=== PATIENT | female | born 1970 | race Caucasian/White ===

== ENCOUNTER 2023-11-05 23:40 | Inpatient (IN) | payer MEDICARE, OTHER, SELFPAY ==
[2023-11-05 19:44] VITALS: BMI 28.8
[2023-11-05 19:50] VITALS: BP 113/78
[2023-11-05 20:16] LABS: % Basophils 0.7 % (0-2); % Immature Granulocytes 0.2 % (0-0.5); % Lymphocytes 29.7 % (20.5-51.1); % Monocytes 4.8 % (1.7-9.3); % Neutrophils 62.6 % (42.2-75.2); Absolute Basophils 0.1 10^3/uL (0-0.2); Absolute Eosinophils 0.2 10^3/uL (0-0.7); Absolute Lymphocytes 3.6 10^3/uL (1.2-3.4); Absolute Monocytes 0.6 10^3/uL (0.1-0.6); Absolute Neutrophils 7.7 10^3/uL (1.4-6.5); Hematocrit 38.6 % (37.0-47.0); Hemoglobin 12.8 g/dL (12.0-16.0); Mean Corp Hgb Conc. 33.2 g/dL (33.0-37.0); Mean Corpuscular Hgb 29.4 pg (27.0-31.0); Mean Corpuscular Volume 88.7 fL (81.0-99.0); Nucleated Red Blood Cells % 0 %; Platelet Count 361 10^3/uL (130-400); Red Blood Cell Count 4.35 10^6/uL (4.20-5.40); Red Cell Dist. Width 13.4 % (11.5-14.5); White Blood Cell Count 12.2 10^3/uL (4.8-10.8)
--- NOTE | 2023-11-05 20:19 | ED.GENMED ---
History of Present Illness
General
Chief Complaint: Abdominal Symptoms
Time Seen by Provider: 11/05/23 20:19
Travel History
Have you had any contact with someone who has COVID-19?: No
Do you have any symptoms of coronavirus? Fever > 100 degrees, chills, cough, shortness of breath, sore throat, loss of taste or smell, muscle aches, or headache?: No
History of Present Illness
History of Present Illness:
HPI: The patient had diffuse/upper abdominal pain earlier in the evening. She then noted black stool and then vomited blood. She denies alcohol use, denies NSAID use, uses Vicodin for fibromyalgia 3 times a day, did not recently use Pepto. She is
not anticoagulated for history of A-fib. She felt that she was distended earlier. She states that she takes Linzess
EXAM:
GENERAL: Well appearing in no distress
HEENT: Moist oral mucosa
CARDIOVASCULAR: No murmurs, normal heart rate, regular rhythm, No chest wall tenderness
PULMONARY: No respiratory distress, breath sounds are clear and equal
ABDOMEN: Soft with no peritoneal signs, mild diffuse tenderness, borderline heme positive stool, however there is very minimal stool obtained to test
NEUROLOGIC: Excellent strength all extremities, no coordination deficits
PSYCHIATRIC: Appropriate mental status, normal insight and judgement
EXTREMITIES: Nontender, no edema, moves all extremities equally
SKIN: No rash, no lesions
TIME OF INITIAL ENCOUNTER:8:20 PM
NUMBER AND COMPLEXITY OF PROBLEMS ADDRESSED AT THE ENCOUNTER
� Chronic conditions affecting care: Atrial fibrillation, migraines, GERD, von Willebrand's
� Acute Exacerbation and/or Progression of Chronic Illness: This is an acute problem
� Differential Diagnosis includes: Gastritis, peptic ulcer disease, esophagitis
AMOUNT AND/OR COMPLEXITY OF DATA TO BE REVIEWED AND ANALYZED
� I performed an independent evaluation of and my interpretation is:
EKG:
CT: I personally viewed CT imaging and see no clear acute abnormality; I reviewed radiologist interpretation that suggested very mild colitis however this does not fit with picture as she presented with hematemesis and reported
melena.
X-rays:
Laboratory Studies: White count 12.2, hemoglobin 12.8, chemistries including LFTs and lipase are normal
Other:
� Review of other/old records: I reviewed records�prior records show hemoglobin primarily between 13.3 and 14.9 recently
� Clinical information was obtained by an independent historian: I spoke to at bedside
� Prescriptions/Medications Considered but not given:
� Further testing considered but not performed:
RISK OF COMPLICATIONS AND/OR MORBIDITY OR MORTALITY OF PATIENT MANAGEMENT
� Social determinants of health affecting care: Lives at home
� Discussion with other providers: Hospitalist for admission at 10:20 PM
� Escalation of care including admission/observation vs risk of discharge considered: Gave Pepcid and Protonix. Will obtain CT imaging as she reports rather significant pain earlier. CT imaging relatively unremarkable. On
reassessment at 10:15 PM, the patient overall feels about the same as earlier. However workup is relatively unremarkable with exception of slightly lower than baseline hemoglobin. CT suggested mild colitis however this does not presentation.
Past History
Past History
ED Past Medical History: Other (Fibromyalgia)
ED Past Surgical History: Appendectomy and Gynecological
Social History
Tobacco: Non-smoker
Alcohol: None
Living: with family
Phy Exam
Physical Exam
Physical Exam:
See HPI
Course
Orders/Labs/Results
Orders:
Orders
11/05/23 19:58
Type+Screen Urgent
Complete Blood Count/With Diff Urgent
Comprehensive Metabolic Panel Urgent
Lipase Urgent
Comment: ADD ON
PTT Urgent
Prothrombin Time Urgent
11/05/23 20:28
Add On- LAB Urgent
Tests Added?: lipase
CT Abd/pelvis W Iv Cont Urgent
Comment:
Reason For Exam: diffuse abd pain leukocytosis
11/05/23 20:29
Famotidine [Pepcid] 20 mg IV NOW STA
Pantoprazole [Protonix IV] 40 mg IV NOW STA
Abnormal Lab Results
11/05/23
19:58
WBC 12.2 H 10^3/uL
(4.8-10.8)
Absolute Neuts (auto) 7.7 H 10^3/uL
(1.4-6.5)
Absolute Lymphs (auto) 3.6 H 10^3/uL
(1.2-3.4)
Carbon Dioxide 33 H mmol/L
(22-30)
Glucose 112 H mg/dl
(70-99)
11/05/23 19:58
11/05/23 19:58
Vital Signs
Initial and Last Documented VS:
Initial Vital Signs
Temp Pulse Resp BP Pulse Ox
98.2 F 65 14 113/78 100
11/05/23 19:50 11/05/23 19:50 11/05/23 19:50 11/05/23 19:50 11/05/23 19:50
Last Documented Vital Signs
Temp Pulse Resp BP Pulse Ox
98.2 F 59 14 101/69 100
11/05/23 19:50 11/05/23 22:00 11/05/23 22:00 11/05/23 22:00 11/05/23 20:35
*Critical Care Note
Total Time (30-74mins, 75-104mins- exclusive of procedures): Not Applicable
ED Attending Note
-
Portions of this chart may have been created with voice recognition software.� Occasional wrong word or��sound alike� substitutions may have occurred due to the inherent limitations of voice recognition software.
Discharge Plan
Departure
Prescriptions:
No Action
cyanocobalamin (vitamin B-12) 1,000 MCG tablet
1,000 mcg PO DAILY
hydrocodone-acetaminophen 10-325 mg Tablet
1 tab PO TIDPRN PRN (Reason: severe pain)
magnesium gluconate 30 mg (550 mg) Tablet
30 mg PO Q48H
eszopiclone [Lunesta] 3 mg Tablet
3 mg PO HS
Visbiome 112.5 billion cell Capsule
1 cap PO DAILY
Linzess 290 mcg Capsule
290 mcg PO DAILY
Medical Marijuana
200 mcg PO DAILY
Referrals:
UNKNOWN - PT DOES,NOT KNOW [Family Provider] -
Interventions
Interventions:
*Risk Screen - Suicide Last Done: 11/05/23 19:50
*General Assessment Last Done: 11/05/23 19:50
*Neglect/Abuse Screening Last Done: 11/05/23 19:50
ED- Fall Risk Assessment Last Done: 11/05/23 21:29
QN-Mulubn-Mynktypwxs Assessment Last Done: 11/05/23 21:29
Discharge Date and Time
Print Language: SPANISH
[2023-11-05 20:26] LABS: ALT (SGPT) 21 U/L (0-35); AST (SGOT) 25 U/L (14-36); Albumin 4.3 g/dl (3.5-5.0); Alkaline Phosphatase 70 U/L (38-126); Blood Urea Nitrogen 17 mg/dl (7-17); Calcium 9.6 mg/dl (8.4-10.2); Carbon Dioxide 33 mmol/L (22-30); Chloride 101 mmol/L (98-107); Glucose 112 mg/dl (70-99); INR 1.14; PT 14.4 Sec (11.4-14.6); Potassium 4.1 mmol/L (3.5-5.1); Sodium 135 mmol/L (135-145); Total Bilirubin 0.2 mg/dl (0.2-1.3); eGFR > 60.00
[2023-11-05 20:27] LABS: APTT 31.1 Sec (23.4-35.0)
[2023-11-05 20:35] VITALS: BP 110/76
[2023-11-05 20:51] LABS: Lipase 105 U/L (23-300)
[2023-11-05] MEDS: PROTONIX IV 40 MG IV (20:55)
[2023-11-05] MEDS: PEPCID 20 MG IV (20:55)
[2023-11-05 22:00] VITALS: BP 101/69
--- NOTE | 2023-11-05 22:36 | HPS.HSE ---
Addendum entered and electronically signed by Aries You DO 11/06/23 00:00:
Patient seen and examined independently. Agree with findings and plan as set forth by PAYAM Peck.
Patient is a 53y F with PMH significant for von Willebrand's disease, SVT s/p ablation and fibromyalgia who presents to ED complaining of abdominal pain with hematemesis and melena. Patient reports rather sudden onset of upper abdominal
discomfort this afternoon. She returned home and had a large episode of emesis of bright red blood. She also had loose stool that was black, tarry in appearance. She complained of severe heartburn. Patient presented to the ED for further
evaluation. She denies any prior history of GI bleeding or other similar symptoms.
Patient received Pepcid and Protonix in the ED with some improvement in her symptoms.
She has had no further episodes of emesis or BM.
Ass:
Hematemesis
Melena
Abdominal Pain
GERD
von Willebrand's Disease
History of DVT / PE
SVT s/p Ablation
Fibromyalgia
Plan:
Admit for further evaluation and treatment.
NPO, IVF support.
IV PPI BID.
Follow for any recurrent N/V/D, etc.
GI eval in the AM for probable endoscopic evaluation.
CT findings noted. These are reportedly 'mild' and are not consistent with her presenting symptoms.
Will ask hematology to evaluate as well given vWD history.
? if patient will require pre-treatment for EGD if biopsies are to be obtained, etc.
Original Note:
Family Physician
-
Family Physician: NOT KNOW UNKNOWN - PT DOES
Chief Complaint
-
abdominal pain associated with melena and bloody vomit
History of Present Illness
53 year old with PMH for fibromyalgia, von Willebrand's disease,SVT s/p cardiac ablation, DVT PE presented to us with diffuse abdominal associated black stool and dark vomiting blood. it happened only once. pain much better since the Pepcid and
Protonix in ER. patient still with heart burn. denied any NSAIDS use. yesterday she was having dysuria, urinary urgency and frequency. denied OROZCO, dizzy or syncopal episode. denied fever, chills, chest pain, sob. patient had a clean coloscopy five
years ago.
hgb stable in ER. admitting for further management.
Medical History
Past Medical History
Past Medical History: Reports Other
Additional Past Medical History:
low back pain
SVT
asthma
von Willebrand's disease
migraine OROZCO
fibromyalgia
DVT
PE
Past Surgical History: Reports Other
Additional Past Surgical History:
appendectomy
hysterectomy
tonsillectomy
cardiac ablation
wisdom tooth extraction
Social History
Tobacco: Smoker (1 pack a week)
Alcohol: None
Drug: None
Employment: Employed
Family History
Family History: Not pertinent
Allergies / Home Medications
Allergies reflects when Allergies were last updated in [employer].
Home Medications with original date entered in [employer]
Allergy/Medication List:
Allergies
Allergy/AdvReac Type Severity Reaction Status Date / Time
diphenhydramine Allergy Unknown Verified 05/14/23 08:13
[From Benadryl]
hydromorphone [From Dilaudid] Allergy Vomiting Verified 05/14/23 08:13
Penicillins Allergy Anaphylaxis Verified 05/14/23 08:13
sulfamethoxazole Allergy Hives Verified 05/14/23 08:13
[From Bactrim]
trimethoprim [From Bactrim] Allergy Hives Verified 05/14/23 08:13
Home Medications
cyanocobalamin (vitamin B-12) 1,000 mcg tablet 1,000 mcg PO DAILY Supplement 10/23/21
Lactobac no.2-Bifidobac no.1-S. thermo 112.5 billion cell capsule (Visbiome) 1 cap PO DAILY 11/05/23
Medical Marijuana 200 mcg PO DAILY 11/05/23
eszopiclone 3 mg tablet (Lunesta) 3 mg PO HS 11/05/23
hydrocodone 10 mg-acetaminophen 325 mg tablet 1 tab PO TIDPRN PRN severe pain 11/05/23
linaclotide 290 mcg capsule (Linzess) 290 mcg PO DAILY 11/05/23
magnesium gluconate 30 mg (550 mg) tablet 30 mg PO Q48H 11/05/23
Review of Systems
-
Constitutional: Reports No Symptoms
EENT: Reports No Symptoms
Respiratory: Reports No Symptoms
Cardiac: Reports No Symptoms
Abdomen/GI: Reports Abdominal Pain, Black Stools and Other (bloody vomit)
: Reports No Symptoms
Musculoskeletal: Reports No Symptoms
Skin: Reports No Symptoms
Neurological: Reports No Symptoms
Endocrine: Reports No Symptoms
Hematologic/Lymphatic: Reports No Symptoms
Psych: Reports No Symptoms
Physical Exam
Vital Signs
Vital Signs
Temp Pulse Resp BP Pulse Ox
98.2 F 59 14 101/69 100
11/05/23 19:50 11/05/23 22:00 11/05/23 22:00 11/05/23 22:00 11/05/23 20:35
Physical Exam
General: Well Developed, Well Nourished and No Apparent Distress
HEENT: NormoCephalic, Moist mucous membranes and Atraumatic
Respiratory: Clear
Cardiac: S1/S2 and Regular Rhythm; No Murmur or Rub
GI: Soft, Non Distended, Normal Bowel Sounds and Tender; No Organomegaly
Rectal: Deferred by Provider
Musculoskeletal: No Clubbing, No Cyanosis and No Edema
Skin: No Rash
Neuro: AO x 3 and Nonfocal/grossly intact
Psych: Calm
Laboratory Results
-
11/05/23 19:58
11/05/23
Laboratory Results
PT 14.4 Sec (11.4-14.6) 11/05/23
INR 1.14 11/05/23
APTT 31.1 Sec (23.4-35.0) 11/05/23
Total Bilirubin 0.2 mg/dl (0.2-1.3) 11/05/23
AST 25 U/L (14-36) 11/05/23
ALT 21 U/L (0-35) 11/05/23
Alkaline Phosphatase 70 U/L (38-126) 11/05/23
Lipase 105 U/L (23-300) 11/05/23
Data Reviewed
-
CT Scan: Report Reviewed by me
Lab Data: Labs Reviewed by me
Impression/Plan
-
#melena/hematemesis associated with abdominal pain
-hgb 12.8
-CT abdomen pelvis with Mild wall thickening of the ascending colon may represent very mild colitis. No free air or free fluid. No fluid collection to suggest an abscess.Mild hepatosplenomegaly. Small hypodensity in the left kidney most consistent
with a cyst.Moderate degenerative change at L5-S1.
-clears for now
-NPO after MN
-IV PPI bid
-GI consulted
#mild colitis
-chronic wbc, afebrile
-defer abx at this time
-ctm
#hxt of SVT
-s/p cardiac ablation
#hxt of Von Willebrand's disease
#chornic leukocytosis
-wbc 12.2
-ctm
#insomnia
-Lunesta continued
#chornic pain/hxt of fibromyalgia
-hydrocodone continued
#IBS
-Linzess continued
#DVT prophylaxis
-scd
#CODE status
-full code
[2023-11-06 01:03] VITALS: BP 135/72
[2023-11-06 01:07] VITALS: BMI 28.8
[2023-11-06 01:28] VITALS: BP 150/78; BP 150/89; BP 156/82; PULSE 97; PULSE 98
[2023-11-06] MEDS: AMBIEN 10 MG PO (02:13)
[2023-11-06 04:24] LABS: Hematocrit 36.7 % (37.0-47.0); Hemoglobin 12.6 g/dL (12.0-16.0); Mean Corp Hgb Conc. 34.3 g/dL (33.0-37.0); Mean Corpuscular Hgb 29.6 pg (27.0-31.0); Mean Corpuscular Volume 86.2 fL (81.0-99.0); Mean Platelet Volume 9.9 fL (7.4-10.4); Platelet Count 326 10^3/uL (130-400); Red Blood Cell Count 4.26 10^6/uL (4.20-5.40); Red Cell Dist. Width 13.5 % (11.5-14.5)
[2023-11-06 04:47] LABS: Blood Urea Nitrogen 13 mg/dl (7-17); Calcium 9.7 mg/dl (8.4-10.2); Carbon Dioxide 28 mmol/L (22-30); Chloride 106 mmol/L (98-107); Estimated Creatinine Clearance 87 ml/min; Glucose 97 mg/dl (70-99); Sodium 136 mmol/L (135-145); eGFR > 60.00
[2023-11-06] MEDS: NORCO 5/325 2 TABLET PO (06:29)
[2023-11-06 07:10] VITALS: BP 111/72
--- NOTE | 2023-11-06 07:30 | CON.GI ---
Consultation
-
Date/Time Consultation Requested: 11/05/2356
Date/Time Consultation Performed: 11/06/23 7150
Requesting Provider: Avis HARE
Performing Provider: Dr. Leblanc/PAYAM Schneider
Reason for Consultation: hematemesis
Medical History
Chief Complaint / HPI
Chief Complaint: abd pain, hematemesis, melena
History of Present Illness:
53-year-old female with past medical history of fibromyalgia, von Willebrand's disease, prior PE and DVT, SVT status post ablation, chronic back pain who presents to the emergency room with acute onset of nausea, vomiting, hematemesis, abdominal
pain and reports of dark stool x 1. Asked to evaluate for the same. The patient is not on any anticoagulation or NSAIDs. She Does take chronic narcotics for back pain. She also is on Linzess for chronic constipation. She does also utilize medical
marijuana. She states that she was started on Linzess by her outside industrial engineering technician a few weeks ago. She started seeing some improvement. Yesterday she had a pork going for dinner no one else became ill she started having abdominal cramping
which produced a bowel movement that she states was darker possibly black in color. She has had no recent Pepto use for a couple months and is not on any oral iron. She does take a kelp supplement. She then went out to the store and returned.
She did have nausea with vomiting of her dinner. This was all solid food at the end of the vomiting she did have vomiting of red blood. She did show me a picture of this which I did review. She had no other episodes of vomiting. She had no
further bowel movements. Rectal exam performed in the ER did not elicit any stool within the rectal vault. The patient denies any fevers, chills, hematochezia, dysphagia or odynophagia. No early satiety or unintentional weight loss. She has no
history of GERD. She takes no NSAIDs or aspirin. She does not drink. She has not had any further episodes of bowel movements emesis or abdominal discomfort since arrival. Currently she does have a migraine.
Past Medical History
Past Medical History: Other (Von Willebrands, SVT s/p ablation, fibromyalgia, PE/DVT, migraines, chrinic back pain)
Past Surgical History: Appendectomy, Cardiac (ablation ), Gynecological (hysterectomy), Tonsilectomy and Other (wisdom teeth extraction )
Social History
Tobacco: Smoker
Alcohol: None
Drug: None
Living: With Family
Family History
Family History: Other (Family history gastrointestinal malignancy or IBD)
Allergies / Home Medications
Allergy/AdvReac Type Severity Reaction Status Date / Time
diphenhydramine Allergy Unknown Verified 05/14/23 08:13
[From Benadryl]
hydromorphone [From Dilaudid] Allergy Vomiting Verified 05/14/23 08:13
Penicillins Allergy Anaphylaxis Verified 05/14/23 08:13
sulfamethoxazole Allergy Hives Verified 05/14/23 08:13
[From Bactrim]
trimethoprim [From Bactrim] Allergy Hives Verified 05/14/23 08:13
�Medication �Instructions �Recorded
cyanocobalamin (vitamin B-12) 1,000 mcg PO DAILY Supplement 10/23/21
1,000 mcg tablet
Lactobac no.2-Bifidobac no.1-S. 1 cap PO DAILY 11/05/23
thermo 112.5 billion cell capsule
(Visbiome)
Medical Marijuana 200 mcg PO DAILY 11/05/23
eszopiclone 3 mg tablet (Lunesta) 3 mg PO HS 11/05/23
hydrocodone 10 mg-acetaminophen 1 tab PO TIDPRN PRN severe pain 11/05/23
325 mg tablet
linaclotide 290 mcg capsule 290 mcg PO DAILY 11/05/23
(Linzess)
magnesium gluconate 30 mg (550 mg) 30 mg PO Q48H 11/05/23
tablet
Review of Systems
-
All other systems: A 12 pt ROS was Negative except as stated above in HPI
Vital Signs
Temp Pulse Resp BP Pulse Ox
97.7 F 93 20 135/72 97
11/06/23 01:03 11/06/23 01:03 11/06/23 01:03 11/06/23 01:03 11/06/23 01:31
Physical Exam
Exam
General: Well Developed and Well Nourished
HEENT: Anicteric
GI: Soft, Non Tender, Non Distended and Normal Bowel Sounds
Musculoskeletal: No Edema
Skin: Warm and Dry
Neuro: AO x 3
Psych: Calm
Results
WBC 10.0 10^3/uL (4.8-10.8) 11/06/23 04:17
Hgb 12.6 g/dL (12.0-16.0) 11/06/23 04:17
Hct 36.7 % (37.0-47.0) L 11/06/23 04:17
MCV 86.2 fL (81.0-99.0) 11/06/23 04:17
Plt Count 326 10^3/uL (130-400) 11/06/23 04:17
Absolute Neuts (auto) 7.7 10^3/uL (1.4-6.5) H 11/05/23 19:58
PT 14.4 Sec (11.4-14.6) 11/05/23 19:58
INR 1.14 11/05/23 19:58
APTT 31.1 Sec (23.4-35.0) 11/05/23 19:58
Sodium 136 mmol/L (135-145) 11/06/23 04:17
Potassium 4.0 mmol/L (3.5-5.1) 11/06/23 04:17
Chloride 106 mmol/L (98-107) 11/06/23 04:17
Carbon Dioxide 28 mmol/L (22-30) 11/06/23 04:17
BUN 13 mg/dl (7-17) 11/06/23 04:17
Creatinine 0.7 mg/dL (0.6-1.0) 11/06/23 04:17
Calcium 9.7 mg/dl (8.4-10.2) 11/06/23 04:17
Total Bilirubin 0.2 mg/dl (0.2-1.3) 11/05/23 19:58
AST 25 U/L (14-36) 11/05/23 19:58
ALT 21 U/L (0-35) 11/05/23 19:58
Alkaline Phosphatase 70 U/L (38-126) 11/05/23 19:58
Lipase 105 U/L (23-300) 11/05/23 19:58
Diagnostic Image Results:
CT of the abdomen and pelvis with IV contrast 11/05/2023:
Mild wall thickening of the ascending colon may represent very mild colitis. No free air or free fluid. No fluid collection to suggest an abscess.
Mild hepatosplenomegaly. Small hypodensity in the left kidney most consistent with a cyst.
Moderate degenerative change at L5-S1.
Electronically signed by Nat Ruiz MD 11/05/2023 10:10 PM
Prior GI Procedures:
EGD: Never
Colonoscopy: Approximately 4 years ago per patient states 'normal'.
Assessment / Plan
-
53-year-old female with past medical history of fibromyalgia, von Willebrand's disease, prior PE and DVT, SVT status post ablation, chronic back pain who presents to the emergency room with acute onset of nausea, vomiting, hematemesis, abdominal
pain and reports of dark stool x 1. Asked to evaluate for the same. The patient is not on any anticoagulation or NSAIDs. She Does take chronic narcotics for back pain. She also is on Linzess for chronic constipation. She does also utilize medical
marijuana. She presented with hemoglobin of 12.8 which is down to 12.6. PT 14.4, INR 1.14, BUN 13, creatinine 0.7 total bilirubin 0.2, AST 25, ALT 21, alk phos 70, lipase 105. CT abdomen pelvis with IV contrast shows mild wall thickening of the
ascending colon may represent very mild colitis. No free air or free fluid. No fluid collection to suggest an abscess. Mild hepatosplenomegaly. Small hypodensity in left kidney most consistent with a cyst. Moderate degenerative change at L5-S1.
Impression:
Hematemesis x 1, following episode of solid food vomiting-> most likely episode of Davida-Sotomayor tear, less likely peptic ulcer disease, esophagitis or Dieulafoy.
--stable hemoglobin and no episodes of further vomiting, melena and stable vital signs
Chronic constipation
--On Linzess as an outpatient
CT with possible mild ascending colitis, no signs of this on exam, labs or symptoms
History of von Willebrand's disease with prior PE and DVT in the past.
Migraine
Plan:
-Continue PPI twice daily
-Clear liquid no reds
-Trend hemoglobin
-Hold Linzess until patient tolerating solid diet. Follow-up with patient's primary GI as an outpatient
-Will hold on any endoscopic intervention unless signs of active bleeding unstable vital signs or significant drop in hemoglobin.
Data Reviewed
-
CT Scan: Report Reviewed by me
-
-
Thank you for consultation and allowing me to participate in the patient's care. Please call the [facility] physician during the after hours with any questions or concerns.
[2023-11-06] MEDS: PROTONIX IV 40 MG IV (08:42)
[2023-11-06] MEDS: NSS (PRESERVATIVE FREE) 10 ML IV (08:43)
--- NOTE | 2023-11-06 09:09 | W.PN.HOSP.TC ---
Today's Communication/Plan
-
PPI
Sips of clears
Await GI
Assessment / Plan
Assessment / Plan
49-year-old female admitted because of abdominal discomfort and vomiting blood at the end of her vomiting. Has not had any further vomiting or hematemesis. She had a solids stool yesterday. Which was dark
On examination awake alert
Has a migraine
Cardiovascular system S1-S2 appreciated
Chest clear to auscultation
Abdomen soft and nontender, mild discomfort in the epigastric area no guarding
No pedal edema
Ambulating around the bed
# Hematemesis
From history it looks like Davida-Sotomayor
Hemoglobin is stable
Hold medical marijuana with vomiting
PPI
GI consulted
# Chronic constipation-likely opiate induced
Linzess as outpatient
Hold per discussion with GI
# Mild ascending colitis on CT
No right-sided tenderness
# History of von Willebrand disease
Hematology consulted
# Chronic migraines
# History of arrythmia status post ablation 2016-no further episodes per patient (SVT? ,? Afib)
# Insomnia-on as outpatient
# Fibromyalgia-continue opiates-opiate dependent
# Medical marijuana use
# Asthma
# Tobacco use
# Moderate degenerative change at L5-S1.
# SCDs for DVT prophylaxis
# Full code
Discussed with GI
Discussed with nursing
Anticipated Discharge: Within 24 hours
Subjective/Interval History
-
Date of Service: November 06, 2023
Objective Data
-
Labs:
Laboratory Results
11/06/23
04:17
WBC 10.0
Hgb 12.6
Hct 36.7 L
Plt Count 326
Sodium 136
Potassium 4.0
Chloride 106
Carbon Dioxide 28
BUN 13
Creatinine 0.7
Glucose 97
Calcium 9.7
Vital Signs:
Vital Signs
Temp Pulse Resp BP Pulse Ox
97.8 F 56 18 111/72 97
11/06/23 07:10 11/06/23 07:10 11/06/23 07:10 11/06/23 07:10 11/06/23 07:10
--- NOTE | 2023-11-06 09:46 | CM ---
CM following re:L discharge planning.
Reviewed pt's chart, met with pt.
Pt is a 53 year old female, admitted with primary dx of GI Bleed.
Pt reports she lives with in a 2SH, 2 steps to enter, has supportive daughter. 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 No DME, VN or SNF history.
Pharmacy:[facility].
D/C plan: home with no needs. to transport at discharge.
CM will follow with discharge plan updates as hospitalization progresses
[2023-11-06 10:25] VITALS: BMI 28.8
--- NOTE | 2023-11-06 10:39 | W.PN.UPDATE ---
Addendum entered and electronically signed by Manoj Alex MD 11/07/23 07:31:
Dictation- [id number]
Original Note:
Update Note
Progress Note Update
I have seen the patient again request from nursing as she wants to leave AGAINST MEDICAL ADVICE. Patient is not satisfied with waiting to see if she has more bleeding. She has a headache. We will forward triptans which she stated she has taken in
the past and has not worked. Tylenol is ordered. I have also ordered Compazine.
She is on sips of clears
Discussed again that she may have Davida-Sotomayor tear and waiting n.p.o. to help it heal, GI consultation-attending still has not seen the patient.
She is aware that if she has more bleeding or vomiting she may need EGD
She thinks that PPI did not agree well with her stomach.
I discussed about options to treat migraine she takes Ubrelvy at home which has worked for her I have ordered a. Pharmacy does not carry it. Discussed about bring it from home so she can take it here.
Discussed with patient and nursing. Patient is aware that her option would be to leave AGAINST MEDICAL ADVICE as her evaluation and treatment is not completed at this time. She is aware about the ramifications of leaving AMA.
[2023-11-06 11:14] VITALS: BP 127/80; BP 135/91; BP 141/79; PULSE 47; PULSE 54; PULSE 62
[2023-11-06] MEDS: D5/0.45%NACL 1000 IV (11:37)
[2023-11-06] MEDS: MAG-TAB SR 84 MG PO (11:37)
--- NOTE | 2023-11-06 12:19 | PTCARENOTE ---
Pt requesting to leave AMA, notified, paperwork filed, patient made aware of the risks of leaving AMA. All paperwork signed by pt and MD.
== END 2023-11-06 12:44 | disposition left against medical advice (07) | DRG 369 ==
LOC: 2 NORTH 23:40
PROVIDERS: Emergency Medicine; Registered Nurse; ADMITTING PHYSICIAN Hospitalist; ATTENDING PHYSICIAN Hospitalist; CONSULT PHYSICIAN Internal Medicine Gastroenterology; EMERGENCY PHYSICIAN Emergency Medicine
DX: K22.6 Gastro-esophageal laceration-hemorrhage syndrome (principal); D68.00 Von Willebrand disease, unspecified; F11.20 Opioid dependence, uncomplicated; G43.909 Migraine, unspecified, not intractable, without status migrainosus; M79.7 Fibromyalgia; I48.91 Unspecified atrial fibrillation; K21.9 Gastro-esophageal reflux disease without esophagitis; M54.50 Low back pain, unspecified; R16.2 Hepatomegaly with splenomegaly, not elsewhere classified; G47.00 Insomnia, unspecified; J45.909 Unspecified asthma, uncomplicated; K52.9 Noninfective gastroenteritis and colitis, unspecified; G89.29 Other chronic pain; F12.90 Cannabis use, unspecified, uncomplicated; F17.200 Nicotine dependence, unspecified, uncomplicated; Z86.718 Personal history of other venous thrombosis and embolism; Z88.1 Allergy status to other antibiotic agents; Z88.0 Allergy status to penicillin; Z88.2 Allergy status to sulfonamides; Z88.8 Allergy status to other drugs, medicaments and biological substances; Z86.711 Personal history of pulmonary embolism; Z87.19 Personal history of other diseases of the digestive system
CPT/HCPCS: 74177; 80048; 80053; 83690; 85025; 85027; 85610; 85730; 86850; 86900; 86901; 96374; 96375; 99285; Q9967

== ENCOUNTER 2023-11-07 14:36 | Observation (INO) | payer MEDICARE, OTHER, SELFPAY ==
[2023-11-07 12:12] VITALS: BP 138/84
[2023-11-07 12:20] VITALS: BMI 28.9
[2023-11-07 12:57] VITALS: BP 143/99
[2023-11-07 13:00] VITALS: BP 125/76
[2023-11-07 13:02] LABS: % Basophils 0.8 % (0-2); % Eosinophils 1.7 % (0-6); % Immature Granulocytes 0.2 % (0-0.5); % Lymphocytes 31.2 % (20.5-51.1); % Monocytes 4.8 % (1.7-9.3); % Neutrophils 61.3 % (42.2-75.2); Absolute Basophils 0.1 10^3/uL (0-0.2); Absolute Eosinophils 0.2 10^3/uL (0-0.7); Absolute Monocytes 0.5 10^3/uL (0.1-0.6); Absolute Neutrophils 5.9 10^3/uL (1.4-6.5); Hematocrit 38.5 % (37.0-47.0); Hemoglobin 13.1 g/dL (12.0-16.0); Mean Corpuscular Hgb 29.2 pg (27.0-31.0); Mean Corpuscular Volume 85.9 fL (81.0-99.0); Mean Platelet Volume 9.9 fL (7.4-10.4); Nucleated Red Blood Cells % 0 %; Platelet Count 347 10^3/uL (130-400); Red Blood Cell Count 4.48 10^6/uL (4.20-5.40); Red Cell Dist. Width 13.4 % (11.5-14.5); White Blood Cell Count 9.6 10^3/uL (4.8-10.8)
[2023-11-07 13:17] LABS: Blood Urea Nitrogen 10 mg/dl (7-17); Calcium 9.8 mg/dl (8.4-10.2); Carbon Dioxide 31 mmol/L (22-30); Chloride 104 mmol/L (98-107); Estimated Creatinine Clearance 102 ml/min; Glucose 93 mg/dl (70-99); Sodium 136 mmol/L (135-145); eGFR > 60.00
--- NOTE | 2023-11-07 13:44 | ED.GENMED ---
History of Present Illness
General
Chief Complaint: Rectal Bleeding
Source: patient, records and previous hospital records
Exam Limitations: none
Time Seen by Provider: 11/07/23 12:38
Nursing documentation reviewed up to this point in time: agreed with
Travel History
Have you had any contact with someone who has COVID-19?: No
Do you have any symptoms of coronavirus? Fever > 100 degrees, chills, cough, shortness of breath, sore throat, loss of taste or smell, muscle aches, or headache?: No
History of Present Illness
History of Present Illness:
53-year-old female von Willebrand's disease SVT fibromyalgia recently admitted with hematemesis, left AGAINST MEDICAL ADVICE yesterday today developed rectal bleeding came back to the ER for admission no NSAID use, no blood thinners, tells me she
was upset because she did not undergo an upper endoscopy yesterday she was told that she should have gone from the urgent care provider
Past History
Past History
ED Past Medical History: Arrthythmia and Other (Fibromyalgia, von Willebrand's SVT)
ED Past Surgical History: Appendectomy, Cardiac and Gynecological
Social History
Tobacco: Non-smoker
Alcohol: None
Drug: None
Living: with family
Employment: Employed
Family History
Family History: Other (Von Willebrand's)
Review of Systems
Review of Systems
All Other Systems: Not applicable
Constitutional: Denies fever
EENT: Reports no symptoms
Respiratory: Reports no symptoms
Cardiac: Reports no symptoms
ABD/GI: Reports bloody stools
: Reports no symptoms
Musculoskeletal: Reports no symptoms
Phy Exam
Physical Exam
Physical Exam:
Physical Exam
General: no apparent distress, not acutely ill
Neck: No joint
Heart: Regular
Lungs: no acute respiratory distress. clear bilaterally
Abdomen: Nontender
Neuro: alert and oriented. no focal neurological deficits
Skin: no rash
Psychiatric: well kept. interactive and cooperative
Extremities: no edema
Course
Orders/Labs/Results
Orders:
Orders
11/07/23 12:05
EKG [Electrocardiogram (*1)] Stat
Reason for Study: Chest Pain
EKG- Treatment ONCE
11/07/23 12:45
IV Insert/Care/Rem.- Treatment PRN
11/07/23 12:54
Basic Metabolic Panel Urgent
Complete Blood Count/With Diff Urgent
Abnormal Lab Results
11/07/23
12:54
Carbon Dioxide 31 H mmol/L
(22-30)
11/07/23 12:54
11/07/23 12:54
Vital Signs
Initial and Last Documented VS:
Initial Vital Signs
Temp Pulse Resp BP Pulse Ox
97.9 F 61 17 138/84 100
11/07/23 12:12 11/07/23 12:12 11/07/23 12:12 11/07/23 12:12 11/07/23 12:12
Last Documented Vital Signs
Temp Pulse Resp BP Pulse Ox
97.9 F 61 17 125/76 100
11/07/23 12:12 11/07/23 12:12 11/07/23 12:12 11/07/23 13:00 11/07/23 12:12
MDM/Problems Addressed
Differential Diagnosis Includes:
GI bleeding upper or lower combination von Willebrand's disease
MDM/Problems Addressed:
GI bleeding
Chronic conditions affecting care:
Fibromyalgia von Willebrand's
Acute Exacerbation and/or Progression of Chronic Illness:
Fibromyalgia von Willebrand's
*Pulse Oximetry
Patient hypoxic: no
*Street Flusher Driver Interpretation
Rate: normal
Interpretation: normal
Heart Rate: 78
Rhythm: sinus
*Critical Care Note
Total Time (30-74mins, 75-104mins- exclusive of procedures): Not Applicable
Data Reviewed
Review of Other/Old Records Reveals: Labs and Progress Notes
Source: patient
Update Note
Update Note:
Patient returns with GI bleeding hospitalist notified of admission
ED Attending Note
-
Portions of this chart may have been created with voice recognition software.� Occasional wrong word or��sound alike� substitutions may have occurred due to the inherent limitations of voice recognition software.
Discharge Plan
Departure
Patient Disposition: Admit
Date of Disposition: 11/07/23
Time of Disposition: 13:48
Admit to: Med/Surg
Presentation/result/management discussed w/ accepting MD/DO: Hospitalist
Condition: Good
Discharge Problem:
GI bleed, Von Willebrand disease
Prescriptions:
No Action
cyanocobalamin (vitamin B-12) 1,000 MCG tablet
1,000 mcg PO DAILY
hydrocodone-acetaminophen 10-325 mg Tablet
1 tab PO TIDPRN PRN (Reason: severe pain)
magnesium gluconate 30 mg (550 mg) Tablet
30 mg PO Q48H
eszopiclone [Lunesta] 3 mg Tablet
3 mg PO HS
Visbiome 112.5 billion cell Capsule
1 cap PO DAILY
Linzess 290 mcg Capsule
290 mcg PO DAILY
Medical Marijuana
200 mcg PO DAILY
Referrals:
Maile Stone CRNP [Family Provider] -
Interventions
Interventions:
*Risk Screen - Suicide Last Done: 11/07/23 12:13
*General Assessment Last Done: 11/07/23 12:13
*Neglect/Abuse Screening Last Done: 11/07/23 12:13
ED- Fall Risk Assessment Last Done: 11/07/23 12:56
*ED COVID-19 Vaccine History Last Done: 11/07/23 12:13
HN-Suprlh-Yjkjretwlv Assessment Last Done: 11/07/23 12:56
ED- Cardiac Assessment Last Done: 11/07/23 13:01
ED- Pulmonary Assessment Last Done: 11/07/23 12:56
Discharge Date and Time
Print Language: SLOVAK
[2023-11-07 14:00] VITALS: BP 124/87
[2023-11-07] MEDS: NSS 1000 IV ×2 (14:05→14:55)
--- NOTE | 2023-11-07 14:19 | HPS.HSE ---
Family Physician
-
Family Physician: Maile Stone
Chief Complaint
-
Rectal bleeding
History of Present Illness
Patient 53 years old female with past medical history chronic low back pain, SVT, asthma, von Willebrand's disease, migraine OROZCO, fibromyalgia, DVT/PE, presented to the hospital with rectal bleeding. Patient was just here in the hospital yesterday
for abdominal pain associated with hematemesis and melena and she signed AGAINST MEDICAL ADVICE this morning, but came back again today for rectal bleeding and abdominal discomfort. Patient states that anytime she eats and she feels abdominal
bloating is and also some abdominal discomfort in the epigastric area and earlier this morning she saw an episode of bright blood per rectum, not associated with abdominal pain. Denies fevers or chills. Denies any use of anticoagulants or NSAIDs.
She tells me she had a colonoscopy about 4 to 5 years ago that was read as unremarkable but she does not know all the details. In the ER, hemoglobin to 13.1. She was referred to hospitalist for further evaluation.
Medical History
Past Medical History
Past Medical History: Reports Other (Chronic low back pain, SVT, asthma, von Willebrand's disease, migraine, OROZCO, fibromyalgia, DVT PE.)
Past Surgical History: Reports Other ([place] tooth extraction, appendectomy, hysterectomy, tonsillectomy, cardiac ablation.)
Social History
Tobacco: Smoker
Alcohol: None
Drug: None
Family History
Family History: Not pertinent
Allergies / Home Medications
Allergies reflects when Allergies were last updated in [employer].
Home Medications with original date entered in [employer]
Allergy/Medication List:
Allergies
Allergy/AdvReac Type Severity Reaction Status Date / Time
diphenhydramine Allergy Unknown Verified 11/07/23 12:12
[From Benadryl]
hydromorphone [From Dilaudid] Allergy Vomiting Verified 11/07/23 12:12
Penicillins Allergy Anaphylaxis Verified 11/07/23 12:12
sulfamethoxazole Allergy Hives Verified 11/07/23 12:12
[From Bactrim]
trimethoprim [From Bactrim] Allergy Hives Verified 11/07/23 12:12
Home Medications
cyanocobalamin (vitamin B-12) 1,000 mcg tablet 1,000 mcg PO DAILY Supplement 10/23/21
Lactobac no.2-Bifidobac no.1-S. thermo 112.5 billion cell capsule (Visbiome) 1 cap PO DAILY 11/05/23
Medical Marijuana 200 mcg PO DAILY 11/05/23
eszopiclone 3 mg tablet (Lunesta) 3 mg PO HS 11/05/23
hydrocodone 10 mg-acetaminophen 325 mg tablet 1 tab PO TID 11/05/23
linaclotide 290 mcg capsule (Linzess) 290 mcg PO DAILY 11/05/23
magnesium gluconate 30 mg (550 mg) tablet 30 mg PO DAILY 11/05/23
Review of Systems
-
A 12 point ROS was completed and negative except as noted: Yes
Physical Exam
Vital Signs
Vital Signs
Temp Pulse Resp BP Pulse Ox
97.9 F 61 17 125/76 100
11/07/23 12:12 11/07/23 12:12 11/07/23 12:12 11/07/23 13:00 11/07/23 12:12
Physical exam:
General: Well Developed, Well Nourished and No Apparent Distress
HEENT: Normocephalic, Atraumatic and Moist Mucous Membranes
Respiratory: Clear to Auscultation; Negative Wheezes, Rales or Rhonchi
Cardiac: Regular Rhythm and S1/S2
GI: Soft, Nontender and Nondistended
Musculoskeletal: No Clubbing, No Cyanosis and No Edema
Neuro: Awake, Alert and Oriented
Psych: Anxious
Physical Exam
General: Other
Laboratory Results
-
11/07/23 12:54
11/07/23 12:54
Laboratory Results
Total Bilirubin Cancelled 11/07/23 12:54
AST Cancelled 11/07/23 12:54
ALT Cancelled 11/07/23 12:54
Alkaline Phosphatase Cancelled 11/07/23 12:54
Impression/Plan
-
IMPRESSION:
Patient 53 years old female presented to the hospital with bright blood per rectum. Patient did sign AGAINST MEDICAL ADVICE today and came back again; this time with rectal bleeding and some abdominal bloating and discomfort.
Impression:
Acute GI bleed, suspicion for hemorrhoidal bleeding.
Rule out acute blood loss anemia
Recent upper gi bleed, likely Davida-Sotomayor tear
Possible colitis, unspecified-this is still not consistent with her presentation.
Anxiety, unspecified
Conditions prior to presentation:
Chronic low back pain
SVT
asthma
von Willebrand's disease
migraine OROZCO
fibromyalgia
DVT
PE
PLAN:
Clear liquid diet and advance as tolerated.
Protonix IV twice a day
Monitor hemoglobin closely
GI consult ([place] texted GI today)
SCDs for DVT prophylaxis
CODE STATUS full code
Total time spent on today's encounter was 55 minutes which included time spent in counseling the patient/family regarding diagnosis and treatment plan as listed above, goals of care, and symptom management. Case was discussed with nursing staff,
specialists, and care coordinators/case management. All labs and imaging personally reviewed by me. Remainder the time spent in detailed review of previous records, lab data, imaging, and other medical provider documentation.
[2023-11-07] MEDS: NSS (PRESERVATIVE FREE) 10 ML IV (14:45)
[2023-11-07] MEDS: PROTONIX IV 40 MG IV (14:45)
[2023-11-07 15:00] VITALS: BP 129/97
--- NOTE | 2023-11-07 17:02 | CON.GI ---
Consultation
-
Date/Time Consultation Requested: 11/07/2023, 2:30pm
Date/Time Consultation Performed: 11/07/2023, 5pm
Requesting Provider: Dr. Navarro
Performing Provider: Dr. Leblanc
Reason for Consultation: rectal bleeding
Medical History
Chief Complaint / HPI
Chief Complaint: rectal bleeding
History of Present Illness:
53-year-old female past medical history of von Willebrand's disease, prior PE and DVT who was seen by my nurse practitioner Della yesterday in consultation and was signed out AMA before I could see her for vomiting with hematemesis. According to
Della's note, she had abdominal cramping after eating pork tacos and had a darker stool and then had nausea and vomiting with solid food with a little bit of blood at the end of the vomit. She showed him a picture of her emesis which came shared with
me which looks primarily of food. Rectal exam in the ER did not have any stool. Our plan was to monitor to see if she needs an endoscopy if she had ongoing bleeding. Her hemoglobin when she was yesterday it was 12.6. My suspicion was based on
the story she had a Davida-Sotomayor tear. Of note, she follows with an outpatient GI who recently put her on Linzess (Dr. Jey Dudley) which she feels is helping. She has chronic bloating. She is also on medical marijuana.
Patient now comes back to the emergency room today with rectal bleeding. I do not see a rectal exam recorded. Her hemoglobin today is 13.1.
I discussion with the patient, she has had no further nausea and vomiting since the episode on Wednesday night. She wiped herself after urinating and saw perhaps a half a capful of blood. She has had no blood in her stool. No further black bowel
movements since Wednesday.
Of note she has these episodes of n/v/d about every 2 months.
Reviewing the workup done so far, blood work significant for normal white blood cell count, normal BMP, normal BUN, CT on November 04 showed mild wall thickening of the colon may represent colitis, mild hepatosplenomegaly, kidney cyst, moderate
degenerative changes in L5-S1.
Last cscope per patient 5 years ago never had EGD.
Past Medical History
Past Medical History: Other (Von Willebrands, SVT s/p ablation, fibromyalgia, PE/DVT, migraines, chronic back pain))
Past Surgical History: Appendectomy, Cardiac (ablation for SVT), Gynecological (hysterectomy), Tonsilectomy and Other (tonsil extraction)
Social History
Tobacco: Smoker
Alcohol: None
Drug: None
Family History
Family History: Reviewed & Not Pertinent
Allergies / Home Medications
Allergy/AdvReac Type Severity Reaction Status Date / Time
diphenhydramine Allergy Unknown Verified 11/07/23 12:12
[From Benadryl]
hydromorphone [From Dilaudid] Allergy Vomiting Verified 11/07/23 12:12
Penicillins Allergy Anaphylaxis Verified 11/07/23 12:12
sulfamethoxazole Allergy Hives Verified 11/07/23 12:12
[From Bactrim]
trimethoprim [From Bactrim] Allergy Hives Verified 11/07/23 12:12
�Medication �Instructions �Recorded
cyanocobalamin (vitamin B-12) 1,000 mcg PO DAILY Supplement 10/23/21
1,000 mcg tablet
Lactobac no.2-Bifidobac no.1-S. 1 cap PO DAILY 11/05/23
thermo 112.5 billion cell capsule
(Visbiome)
Medical Marijuana 200 mcg PO DAILY 11/05/23
eszopiclone 3 mg tablet (Lunesta) 3 mg PO HS 11/05/23
hydrocodone 10 mg-acetaminophen 1 tab PO TID 11/05/23
325 mg tablet
linaclotide 290 mcg capsule 290 mcg PO DAILY 11/05/23
(Linzess)
magnesium gluconate 30 mg (550 mg) 30 mg PO DAILY 11/05/23
tablet
Review of Systems
-
All other systems: A 12 pt ROS was Negative except as stated above in HPI
Vital Signs
Temp Pulse Resp BP Pulse Ox
97.9 F 61 17 129/97 100
11/07/23 12:12 11/07/23 12:12 11/07/23 12:12 11/07/23 15:00 11/07/23 12:12
Physical Exam
Exam
General: Well Developed
HEENT: Normocephalic
Respiratory: Clear
Cardiac: S1/S2
GI: Non Tender and Non Distended
Rectal: Hemorrhoids and Other (no stool in vault)
Musculoskeletal: No Clubbing
Skin: Warm
Neuro: AO x 3
Psych: Calm
Results
WBC 9.6 10^3/uL (4.8-10.8) 11/07/23 12:54
Hgb 13.1 g/dL (12.0-16.0) 11/07/23 12:54
Hct 38.5 % (37.0-47.0) 11/07/23 12:54
MCV 85.9 fL (81.0-99.0) 11/07/23 12:54
Plt Count 347 10^3/uL (130-400) 11/07/23 12:54
Absolute Neuts (auto) 5.9 10^3/uL (1.4-6.5) 11/07/23 12:54
Sodium 136 mmol/L (135-145) 11/07/23 12:54
Potassium mmol/L (3.5-5.1) 11/07/23 12:54
Chloride 104 mmol/L (98-107) 11/07/23 12:54
Carbon Dioxide 31 mmol/L (22-30) H 11/07/23 12:54
BUN 10 mg/dl (7-17) 11/07/23 12:54
Creatinine 0.6 mg/dL (0.6-1.0) 11/07/23 12:54
Calcium 9.8 mg/dl (8.4-10.2) 11/07/23 12:54
Total Bilirubin Cancelled 11/07/23 12:54
AST Cancelled 11/07/23 12:54
ALT Cancelled 11/07/23 12:54
Alkaline Phosphatase Cancelled 11/07/23 12:54
Diagnostic Image Results:
Prior GI Procedures:
EGD:
Colonoscopy:
Assessment / Plan
-
53-year-old female past medical history as above presenting with vomiting with blood and diarrhea on Wednesday which has resolved now today had a small amount of rectal bleeding with wiping. Most likely, I think the vomiting with blood was related to
a Davida-Sotomayor tear which has not had any further bleeding. She has been tolerating a diet at home and her hemoglobin has been stable for 48 hours since the last time she vomited. In regards to the rectal bleeding, I suspect this is hemorrhoidal
as it was only when she wiped and was after she had diarrhea yesterday. She had significant hemorrhoids on exam today and no blood in the vault.
We discussed the option of doing upper endoscopy but I do not think it is necessary to do that as an inpatient at this time given the stable Hb for 48 hours and no further hematemesis or vomiting and no history of cirrhosis (normal platelets). I
did explain I think she would benefit from an upper endoscopy and colonoscopy as an outpatient. She will reach out to her outpatient scheduling specialist regarding this. She feels the Protonix is causing her symptoms of heart fluttering and fullness
so we will switch it to omeprazole 40 mg twice a day as outpatient. For the hemorrhoids, she should do sitz bath's twice a day and I recommend Anusol twice a day for 10 days as well. She was incidentally found to have a hepatosplenomegaly on CT
scan and should follow up with outpatient GI for this as well.
I discussed with hospitalist blake from GI POV for discharge with outpatient GI follow up. I did explain to pt if she has any further hematemesis or significant rectal bleeding should return to ER.
-
-
Thank you for consultation and allowing me to participate in the patient's care. Please call the sand conditioner machine GI physician during the after hours with any questions or concerns.
--- NOTE | 2023-11-07 17:54 | W.DCSUMMARY ---
Discharge Summary
Discharge Data
Date of Admission: 11/07/23
Date of Discharge: 11/07/23
-
Pending Results: No
Hospital Course
Patient 53 years old female with multiple comorbidities came into the hospital with bright blood per rectum. Patient had a recent hospitalization with hematemesis and signed AGAINST MEDICAL ADVICE and came back with bright blood per rectum. Her
hemoglobin has remained stable. GI consulted. GI evaluated the patient and felt her rectal bleed is related to hemorrhoids. GI recommended twice a day Protonix and also had EGD and colonoscopy as outpatient. GI also recommended Anusol for 10
days and sitz bath. GI cleared her for discharge today.
Discharge Plan
-
Patient Disposition: Home (Routine Discharge)
Discharge Diagnosis/Procedures: Acute gastrointestinal bleed. Hemorrhoidal bleed.
Diet: Regular
Activity: As tolerated
Driving Restrictions: As prior to admission
Blood Work: Please PCP to order CBC, BMP within 1 week
Referrals:
Maile Stone CRNP [Family Provider] - in less than 1 week
Brittni Leblanc MD [Active] - in two to four weeks
Prescriptions:
New
pantoprazole [Protonix] 40 mg tablet,delayed release (DR/EC)
40 mg PO BID Qty: 60 0RF
hydrocortisone acetate [Anusol-HC] 25 mg suppository
25 mg [place] BID Qty: 12 0RF
Continued
cyanocobalamin (vitamin B-12) 1,000 MCG tablet
1,000 mcg PO DAILY
hydrocodone-acetaminophen 10-325 mg Tablet
1 tab PO TID
Patient Comments:
11/07/2023: last filled 10/28/23, 90 tabs for 30 days from [facility]
magnesium gluconate 30 mg (550 mg) Tablet
30 mg PO DAILY
eszopiclone [Lunesta] 3 mg Tablet
3 mg PO HS
Patient Comments:
11/07/2023: last filled 10/18/23, 30 tabs for 30 days from [facility]
Visbiome 112.5 billion cell Capsule
1 cap PO DAILY
Linzess 290 mcg Capsule
290 mcg PO DAILY
Medical Marijuana
200 mcg PO DAILY
Discharge Orders:
Discharge Patient (As Directed); Ordered 11/07/23
Ordered By: Mono Navarro
Discharge Date and Time
Discharge Date/Time: 11/07/23 18:00
Print Language: GREENLANDIC
[2023-11-07 18:08] VITALS: BP 115/72
== END 2023-11-07 18:00 | disposition home or self-care (01) ==
LOC: 4 WEST ACU 14:36
PROVIDERS: ADMITTING PHYSICIAN Hospitalist; CONSULT PHYSICIAN Internal Medicine Gastroenterology; EMERGENCY PHYSICIAN Emergency Medicine; FAMILY PHYSICIAN Nurse Practitioner
DX: K92.1 Melena (principal); K64.9 Unspecified hemorrhoids; D68.00 Von Willebrand disease, unspecified; M79.7 Fibromyalgia; I47.10 Supraventricular tachycardia, unspecified; K92.0 Hematemesis; R07.9 Chest pain, unspecified; R14.0 Abdominal distension (gaseous); R16.2 Hepatomegaly with splenomegaly, not elsewhere classified; J45.909 Unspecified asthma, uncomplicated; G43.909 Migraine, unspecified, not intractable, without status migrainosus; M54.50 Low back pain, unspecified; F41.9 Anxiety disorder, unspecified; G89.29 Other chronic pain; F17.200 Nicotine dependence, unspecified, uncomplicated; Z86.718 Personal history of other venous thrombosis and embolism; Z86.711 Personal history of pulmonary embolism; Z88.8 Allergy status to other drugs, medicaments and biological substances; Z88.1 Allergy status to other antibiotic agents; Z88.0 Allergy status to penicillin; Z88.2 Allergy status to sulfonamides
CPT/HCPCS: 80048; 85025; 93005; 96360; 99285; G0378

== ENCOUNTER 2023-11-09 17:37 | Emergency (ER) | payer MEDICARE, OTHER, SELFPAY ==
[2023-11-09 17:37] VITALS: BMI 28.8
[2023-11-09 17:43] VITALS: BP 140/96
[2023-11-09 19:04] VITALS: BP 128/89
[2023-11-09] MEDS: NSS 500 IV (19:13)
[2023-11-09 19:20] LABS: % Basophils 0.8 % (0-2); % Eosinophils 1.3 % (0-6); % Immature Granulocytes 0.3 % (0-0.5); % Lymphocytes 25.7 % (20.5-51.1); % Monocytes 4.4 % (1.7-9.3); % Neutrophils 67.5 % (42.2-75.2); Absolute Basophils 0.1 10^3/uL (0-0.2); Absolute Eosinophils 0.2 10^3/uL (0-0.7); Absolute Lymphocytes 3.1 10^3/uL (1.2-3.4); Absolute Monocytes 0.5 10^3/uL (0.1-0.6); Absolute Neutrophils 8.1 10^3/uL (1.4-6.5); Hematocrit 36.8 % (37.0-47.0); Hemoglobin 12.7 g/dL (12.0-16.0); Mean Corp Hgb Conc. 34.5 g/dL (33.0-37.0); Mean Corpuscular Hgb 29.4 pg (27.0-31.0); Mean Corpuscular Volume 85.2 fL (81.0-99.0); Mean Platelet Volume 10.1 fL (7.4-10.4); Nucleated Red Blood Cells % 0 %; Platelet Count 351 10^3/uL (130-400); Red Blood Cell Count 4.32 10^6/uL (4.20-5.40); Red Cell Dist. Width 13.2 % (11.5-14.5)
[2023-11-09 19:34] LABS: ALT (SGPT) 19 U/L (0-35); AST (SGOT) 26 U/L (14-36); Albumin 4.4 g/dl (3.5-5.0); Alkaline Phosphatase 68 U/L (38-126); Blood Urea Nitrogen 18 mg/dl (7-17); Calcium 10.3 mg/dl (8.4-10.2); Carbon Dioxide 28 mmol/L (22-30); Chloride 102 mmol/L (98-107); Estimated Creatinine Clearance 87 ml/min; Glucose 96 mg/dl (70-99); Potassium 3.8 mmol/L (3.5-5.1); Sodium 136 mmol/L (135-145); Total Bilirubin 0.4 mg/dl (0.2-1.3); eGFR > 60.00
[2023-11-09 19:35] LABS: Lipase 61 U/L (23-300)
[2023-11-09 19:44] LABS: Troponin I < 0.012 ng/ml
--- NOTE | 2023-11-09 20:25 | ED.GENMED ---
History of Present Illness
General
Chief Complaint: Chest Pain
Time Seen by Provider: 11/09/23 18:17
Travel History
Have you had any contact with someone who has COVID-19?: No
Do you have any symptoms of coronavirus? Fever > 100 degrees, chills, cough, shortness of breath, sore throat, loss of taste or smell, muscle aches, or headache?: No
Past History
Past History
ED Past Medical History: Arrthythmia and Other (Fibromyalgia, von Willebrand's SVT)
ED Past Surgical History: Appendectomy, Cardiac and Gynecological
Social History
Tobacco: Non-smoker
Alcohol: None
Drug: None
Living: with family
Employment: Employed
Family History
Family History: Other (Von Willebrand's)
Course
Orders/Labs/Results
Orders:
Orders
11/09/23 17:38
Electrocardiogram (*1) Urgent
Reason for Study: Chest Pain
EKG- Treatment ONCE
11/09/23 18:30
IV Insert/Care/Rem.- Treatment PRN
0.9% Sodium Chloride 500 ml [Nss] 500 ml IV BOLUS
11/09/23 18:31
Cardiac Monitoring- Treatment ONCE
11/09/23 18:32
CR Chest - 2 Views Urgent
Comment:
Reason For Exam: hematemesis. cp
11/09/23 19:10
Comprehensive Metabolic Panel Urgent
Lipase Urgent
Troponin I Urgent
11/09/23 19:11
Complete Blood Count/With Diff Urgent
Abnormal Lab Results
11/09/23 11/09/23
19:10 19:11
WBC 12.0 H 10^3/uL
(4.8-10.8)
Hct 36.8 L %
(37.0-47.0)
Absolute Neuts (auto) 8.1 H 10^3/uL
(1.4-6.5)
BUN 18 H mg/dl
(7-17)
Calcium 10.3 H mg/dl
(8.4-10.2)
11/09/23 19:11
11/09/23 19:10
Vital Signs
Initial and Last Documented VS:
Initial Vital Signs
Temp Pulse Resp BP Pulse Ox
98.3 F 73 16 140/96 98
11/09/23 17:43 11/09/23 17:43 11/09/23 17:43 11/09/23 17:43 11/09/23 17:43
Last Documented Vital Signs
Temp Pulse Resp BP Pulse Ox
98.3 F 58 16 128/89 97
11/09/23 17:43 11/09/23 19:04 11/09/23 17:43 11/09/23 19:04 11/09/23 19:04
Update Note
Update Note:
Patient's rectal exam is heme-negative. She is medically stable and nontoxic. She is describing some shortness of breath heart racing earlier today bloating feeling. Her hemoglobin is stable rectal exam is negative. I cannot explain this by her
GI symptoms recently. She does have a history of cardiac ablation it is possible she had atrial fibrillation or SVT earlier however she has no findings to support any significant cardiac arrhythmia here. Patient very frustrated. I offered
admission although I am not convinced medically this requires an acute admission at this time. She does have a mild leukocytosis. After further discussion with the patient I will talk to GI about whether they would possibly scope her in the
hospital. And finally out of completeness I would do a PE study, this would rule out pulmonary emboli causing her shortness of breath and heart racing and would also evaluate for any issues related to an esophageal tear or periesophageal
perforation. Clinically this is very unlikely
Discussed with GI. Given her stability and lack of vomiting now lack of hematemesis lack of black or tarry stools stable hemoglobin she would not get scoped while in the hospital. As for the other symptoms the last test I would like to do to rule
out any serious etiology is a PE study. This would be for 2 reasons 1 to evaluate her esophagus and to evaluate for pulmonary emboli. If all negative stable for discharge to follow-up
ED Attending Note
-
Portions of this chart may have been created with voice recognition software.� Occasional wrong word or��sound alike� substitutions may have occurred due to the inherent limitations of voice recognition software.
Discharge Plan
Departure
Prescriptions:
No Action
cyanocobalamin (vitamin B-12) 1,000 MCG tablet
1,000 mcg PO DAILY
hydrocodone-acetaminophen 10-325 mg Tablet
1 tab PO TID
Patient Comments:
11/07/2023: last filled 10/28/23, 90 tabs for 30 days from [facility]
magnesium gluconate 30 mg (550 mg) Tablet
30 mg PO DAILY
eszopiclone [Lunesta] 3 mg Tablet
3 mg PO HS
Patient Comments:
11/07/2023: last filled 10/18/23, 30 tabs for 30 days from [facility]
Visbiome 112.5 billion cell Capsule
1 cap PO DAILY
Linzess 290 mcg Capsule
290 mcg PO DAILY
Medical Marijuana
200 mcg PO DAILY
pantoprazole [Protonix] 40 mg tablet,delayed release (DR/EC)
40 mg PO BID Qty: 60 0RF
hydrocortisone acetate [Anusol-HC] 25 mg suppository
25 mg [place] BID Qty: 12 0RF
Referrals:
Maile Stone CRNP [Family Provider] -
Interventions
Interventions:
*Risk Screen - Suicide Last Done: 11/09/23 17:43
*General Assessment Last Done: 11/09/23 17:43
*Neglect/Abuse Screening Last Done: 11/09/23 17:43
Discharge Date and Time
Print Language: CONGOLESE
[2023-11-09 20:43] VITALS: BP 106/88
[2023-11-09 22:19] VITALS: BP 151/97
== END 2023-11-09 22:29 | disposition home or self-care (01) ==
LOC: EMR 17:37
PROVIDERS: EMERGENCY PHYSICIAN Emergency Medicine; FAMILY PHYSICIAN Nurse Practitioner
DX: R06.00 Dyspnea, unspecified (principal); R00.2 Palpitations; K22.6 Gastro-esophageal laceration-hemorrhage syndrome; R07.89 Other chest pain; M79.7 Fibromyalgia; D68.00 Von Willebrand disease, unspecified; I47.10 Supraventricular tachycardia, unspecified
CPT/HCPCS: 99284; 96360; 96361; 71046; 71275; 80053; 83690; 84484; 85025; 93005; Q9967

== ENCOUNTER 2024-04-03 11:37 | Outpatient (RCR) | payer MEDICARE, OTHER, SELFPAY | END 2024-04-03 23:59 | disposition home or self-care (01) | LOC: RPT 11:37 | PROVIDERS: ATTENDING PHYSICIAN Orthopaedic Surgery | DX: M62.89 Other specified disorders of muscle (principal); M54.51 Vertebrogenic low back pain; R10.2 Pelvic and perineal pain; Z73.6 Limitation of activities due to disability | CPT/HCPCS: 97112; 97140; 97163; 97530 ==

== ENCOUNTER 2024-05-01 09:59 | Outpatient (RCR) | payer MEDICARE, OTHER, SELFPAY | END 2024-05-01 23:59 | disposition home or self-care (01) | LOC: RPT 09:59 | PROVIDERS: Orthopaedic Surgery; ATTENDING PHYSICIAN Pain Medicine Interventional Pain Medicine | DX: M54.51 Vertebrogenic low back pain (principal); M62.89 Other specified disorders of muscle; R10.2 Pelvic and perineal pain; Z73.6 Limitation of activities due to disability | CPT/HCPCS: 97014; 97112; 97140; 97530 ==

== ENCOUNTER 2024-05-15 07:28 | Outpatient (RCR) | payer MEDICARE, OTHER, SELFPAY | END 2024-05-15 23:59 | disposition home or self-care (01) | LOC: RPT 07:28 | PROVIDERS: ATTENDING PHYSICIAN Pain Medicine Interventional Pain Medicine | DX: M54.51 Vertebrogenic low back pain (principal); M62.89 Other specified disorders of muscle; R10.2 Pelvic and perineal pain; Z73.6 Limitation of activities due to disability | CPT/HCPCS: 97014; 97112; 97530 ==

== ENCOUNTER 2024-06-19 10:49 | Outpatient (RCR) | payer MEDICARE, OTHER, SELFPAY | END 2024-06-19 23:59 | disposition home or self-care (01) | LOC: RPT 10:49 | PROVIDERS: ATTENDING PHYSICIAN Pain Medicine Interventional Pain Medicine | DX: M54.51 Vertebrogenic low back pain (principal); M62.89 Other specified disorders of muscle; R10.2 Pelvic and perineal pain; Z73.6 Limitation of activities due to disability; M62.81 Muscle weakness (generalized) | CPT/HCPCS: 97014; 97112; 97530 ==

== ENCOUNTER 2024-07-31 12:25 | Outpatient (RCR) | payer MEDICARE, OTHER, SELFPAY | END 2024-07-31 23:59 | disposition home or self-care (01) | LOC: RPT 12:25 | PROVIDERS: ATTENDING PHYSICIAN Pain Medicine Interventional Pain Medicine | DX: M54.51 Vertebrogenic low back pain (principal); M62.89 Other specified disorders of muscle; R10.2 Pelvic and perineal pain; Z73.6 Limitation of activities due to disability; M62.81 Muscle weakness (generalized) | CPT/HCPCS: 97014; 97112; 97140; 97530 ==

== ENCOUNTER 2024-08-07 12:35 | Outpatient (RCR) | payer MEDICARE, OTHER, SELFPAY | END 2024-08-07 23:59 | disposition home or self-care (01) | LOC: RPT 12:35 | PROVIDERS: ATTENDING PHYSICIAN Pain Medicine Interventional Pain Medicine | DX: M54.51 Vertebrogenic low back pain (principal); M62.89 Other specified disorders of muscle; R10.2 Pelvic and perineal pain; Z73.6 Limitation of activities due to disability; M62.81 Muscle weakness (generalized); R32 Unspecified urinary incontinence; R39.15 Urgency of urination | CPT/HCPCS: 97110; 97112; 97530 ==